=== PATIENT | male | born 1960 | race Caucasian/White ===

== ENCOUNTER 2019-01-11 06:32 | Day surgery (SDC) | payer BC ==
[~2019-01-11] VITALS: Ht 172.7 cm; Wt 104.6 kg
[2019-01-11 07:24] VITALS: BP 135/79
[2019-01-11] MEDS ORDERED: METF500T17 PO (07:36)
[2019-01-11] MEDS ORDERED: LEVO100T5 PO (07:36)
[2019-01-11] MEDS ORDERED: GLIM1TAB2 PO (07:36)
[2019-01-11] MEDS ORDERED: TRAV5DRO EACHEYE (07:36)
[2019-01-11] MEDS ORDERED: ATEN50TA41 PO (07:36)
[2019-01-11] MEDS ORDERED: LACTATED RINGERS 1,000 ML IV SCH (07:36)
[2019-01-11 07:48] LABS: ALBUMIN 3.8 g/dL (3.4-5.0); ANION GAP 8 mmol/L (5-15); CALCIUM 9.2 mg/dL (8.5-10.1); CHLORIDE 111 mmol/L (98-107)
[2019-01-11 07:51] LABS: ALANINE AMINOTRANSFERASE 25 U/L (12-78); ALKALINE PHOSPHATASE 115 U/L (45-117); BILIRUBIN,TOTAL 0.6 mg/dL (0.2-1.0); CREATININE 1.15 mg/dL (0.7-1.3); TOTAL PROTEIN 8.1 g/dL (6.4-8.2)
[2019-01-11] MEDS ORDERED: ONDANSETRON 2MG/ML, 2ML IV PRN (08:00)
[2019-01-11] MEDS ORDERED: ACETAMINOPHEN 325 MG TABLET PO PRN (08:00)
[2019-01-11] MEDS ORDERED: METOPROLOL 1 MG/ML, 5ML IV PRN (08:00)
[2019-01-11] MEDS ORDERED: KETOROLAC 30 MG/1 ML IV PRN (08:00)
[2019-01-11] MEDS ORDERED: PROPOFOL 10 MG/ML, 20ML ONE (08:21)
[2019-01-11] MEDS ORDERED: OXYcodone/APAP 5/325MG TABLET PO PRN (09:00)
[2019-01-11] MEDS ORDERED: KETOROLAC 30 MG/1 ML IVPush SCH (10:00)
== END 2019-01-11 10:10 | disposition home or self-care (01) ==
LOC: OUT 06:32
PROVIDERS: ATTEND Orthopaedic Surgery
DX: T84.84XA Pain due to internal orthopedic prosthetic devices, implants and grafts, initial encounter (principal); M21.371 Foot drop, right foot; I10 Essential (primary) hypertension; E11.9 Type 2 diabetes mellitus without complications; E03.9 Hypothyroidism, unspecified; L40.9 Psoriasis, unspecified; H40.9 Unspecified glaucoma; Z79.890 Hormone replacement therapy; Z79.84 Long term (current) use of oral hypoglycemic drugs; Z79.82 Long term (current) use of aspirin; Z79.899 Other long term (current) drug therapy; Z82.3 Family history of stroke; Y83.8 Other surgical procedures as the cause of abnormal reaction of the patient, or of later complication, without mention of misadventure at the time of the procedure
CPT/HCPCS: 20610; 73501; 77002; 80053; 82962; 93005; J2704; J7120; 76000

== ENCOUNTER → 2020-12-10 | Outpatient (CLI) | payer MEDICAID ==
[~2020-12-10] MED LIST: ATEN25TA PO; ATEN50TA41 PO; GLIM1TAB7 PO; LATA2.5D4 EACHEYE; LEVO100T5 PO; LEVO50TA5 PO; METF500T17 PO; METF850T10 PO; TRAV5DRO EACHEYE
[2020-12-10 10:09] LABS: BASOPHILS % (AUTO) 1 % (0-1); EOSINOPHILS % (AUTO) 4 % (1-7); LYMPHOCYTES % (AUTO) 13 % (22-44); MEAN CORPUSCULAR HEMOGLOBIN 31.3 pg (27.5-34.5); MEAN CORPUSCULAR HGB CONC 33.8 g/dL (33.2-36.2); MEAN PLATELET VOLUME 11.9 fL (7.4-10.4); MONOCYTES % (AUTO) 8 % (2-9); NEUTROPHILS % (AUTO) 76 % (42-75); PLATELET COUNT 141 x10^3/uL (130-400); RED BLOOD COUNT 4.88 x10^6/uL (4.38-5.82); RED CELL DISTRIBUTION WIDTH 15.1 % (9.4-14.8)
[2020-12-10 10:14] LABS: ALANINE AMINOTRANSFERASE 20 U/L (12-78); ANION GAP 3 mmol/L (5-15); CALCIUM 9.8 mg/dL (8.5-10.1); CHLORIDE 108 mmol/L (98-107); CREATININE 1.32 mg/dL (0.7-1.3)
[2020-12-10 10:15] LABS: INTERNATIONAL NORMALIZED RATIO 0.99 (0.93-1.1); PROTHROMBIN TIME 10.6 Seconds (9.6-11.5)
[2020-12-10 10:16] LABS: ALKALINE PHOSPHATASE 104 U/L (45-117); BILIRUBIN,TOTAL 0.5 mg/dL (0.2-1.0)
[2020-12-10 10:44] LABS: MD SCAN
== END | disposition home or self-care (01) ==
LOC: STAR 08:42
PROVIDERS: ATTEND Orthopaedic Surgery
DX: Z01.812 Encounter for preprocedural laboratory examination (principal); Z20.822 Contact with and (suspected) exposure to COVID-19; Z96.641 Presence of right artificial hip joint; Z79.01 Long term (current) use of anticoagulants; T84.51XD Infection and inflammatory reaction due to internal right hip prosthesis, subsequent encounter; T84.194A Other mechanical complication of internal fixation device of right femur, initial encounter
CPT/HCPCS: 36415; 80053; 83036; 85025; 85610; 85730; 87081; 93005; U0003

== ENCOUNTER 2020-12-16 13:09 | Inpatient (IN) | payer MEDICAID ==
[~2020-12-16] VITALS: Ht 172.7 cm; Wt 111.4 kg
[~2020-12-16 13:09] MED LIST changes: +EPINEPHRINE 1 MG/ML, 1ML ONE; +KETOROLAC 60 MG/2 ML ONE; +ROPIvacaine/PF 0.5%, 20 ML ONE; +ROPIvacaine/PF 0.5%, 30 ML ONE; +SODIUM CHLORIDE 0.9% 0 ML ONE; +TRANEXAMIC ACID 100 MG/ML, 10ML ONE; +VANCOMYCIN 1,000 MG ONE
[2020-12-16] MEDS ORDERED: CHLORHEXIDINE 15 ML UDC ONE (13:54)
[2020-12-16] MEDS ORDERED: ACETAMINOPHEN 500 MG TABLET PO ONE (14:00)
[2020-12-16] MEDS ORDERED: GABAPENTIN 300 MG CAPSULE PO ONE (14:00)
[2020-12-16] MEDS ORDERED: ONDANSETRON 4 MG TABLET PO PRN (14:00)
[2020-12-16] MEDS ORDERED: ZOLPIDEM 5MG TABLET PO PRN (14:00)
[2020-12-16] MEDS ORDERED: OXYcodone IR 5MG TABLET PO PRN (14:00)
[2020-12-16] MEDS ORDERED: ACETAMINOPHEN 650 MG/20.3 ML UDC PO PRN (14:00)
[2020-12-16] MEDS ORDERED: MAGNESIUM HYDROXIDE 8%, 30ML UDC PO PRN (14:00)
[2020-12-16] MEDS ORDERED: BISACODYL 10 MG SUPP PR PRN (14:00)
[2020-12-16] MEDS ORDERED: LACTATED RINGERS 1,000 ML IV SCH (14:00)
[2020-12-16] MEDS ORDERED: DIPHENHYDRAMINE 25 MG CAPSULE PO PRN (14:00)
[2020-12-16] MEDS ORDERED: HYDROcodone/APAP 5/325 TABLET PO PRN (14:00)
[2020-12-16] MEDS ORDERED: ONDANSETRON 2MG/ML, 2ML IV PRN (14:00)
[2020-12-16] MEDS ORDERED: VANCOMYCIN PER PHARMACY MC PRN (14:00)
[2020-12-16] MEDS ORDERED: SENNA/DOCUSATE TABLET PO PRN (14:00)
[2020-12-16] MEDS ORDERED: CHLORHEXIDINE 15 ML UDC PO ONE (14:00)
[2020-12-16] MEDS ORDERED: TOBRAMYCIN SULFATE 1.2 GM IMP ONE (14:13)
[2020-12-16] MEDS ORDERED: VANCOMYCIN 1,000 MG ONE ×3 (14:13→16:07)
[2020-12-16] MEDS ORDERED: VANCOMYCIN 1,900 MG in SODIUM CHLORIDE 0.9% 250 ML IV ONE (14:30)
[2020-12-16] MEDS ORDERED: ROPIvacaine/PF 0.5%, 20 ML ONE (15:15)
[2020-12-16] MEDS ORDERED: TRANEXAMIC ACID 100 MG/ML, 10ML ONE ×2 (15:15)
[2020-12-16] MEDS ORDERED: KETOROLAC 60 MG/2 ML ONE (15:15)
[2020-12-16] MEDS ORDERED: SODIUM CHLORIDE 0.9% 0 ML ONE (15:15)
[2020-12-16] MEDS ORDERED: ROPIvacaine/PF 0.5%, 30 ML ONE (15:15)
[2020-12-16] MEDS ORDERED: EPINEPHRINE 1 MG/ML, 1ML ONE (15:16)
[2020-12-16] MEDS ORDERED: FENTANYL PF 100 MCG/2ML ONE ×5 (16:11→18:08)
[2020-12-16] MEDS ORDERED: PROPOFOL 10 MG/ML, 20ML ONE (16:33)
[2020-12-16] MEDS ORDERED: CEFAZOLIN 1,000 MG ONE (16:33)
[2020-12-16] MEDS ORDERED: SUCCINYLCHOLINE 20 MG/ML, 10ML ONE (16:33)
[2020-12-16] MEDS ORDERED: ONDANSETRON 2MG/ML, 2ML ONE (16:33)
[2020-12-16] MEDS ORDERED: GLYCOPYRROLATE 0.2MG/1ML, 5ML ONE (16:33)
[2020-12-16] MEDS ORDERED: DEXAMETHASONE 4 MG/ML, 1ML ONE (16:33)
[2020-12-16] MEDS ORDERED: ROCURONIUM 10MG/ML,5ML ONE (16:33)
[2020-12-16] MEDS ORDERED: NEOSTIGMINE 1 MG/ML, 10ML ONE (16:33)
[2020-12-16] MEDS ORDERED: ONDANSETRON 2MG/ML, 2ML IVPush PRN (18:30)
[2020-12-16] MEDS ORDERED: OXYcodone 5 MG/5 ML ORAL.SOL UDC PO PRN (18:30)
[2020-12-16] MEDS ORDERED: PROMETHAZINE 25 MG/ML, 1ML IVPush PRN (18:30)
[2020-12-16] MEDS ORDERED: LORazepam 2 MG/ML, 1ML IVPush PRN (18:30)
[2020-12-16] MEDS ORDERED: hydrALAzine 20 MG/ML, 1ML IV PRN (18:30)
[2020-12-16] MEDS ORDERED: ACETAMINOPHEN 325 MG TABLET PO PRN (18:30)
[2020-12-16] MEDS ORDERED: EPHEDRINE 50 MG/ML, 1ML IVPush PRN (18:30)
[2020-12-16] MEDS ORDERED: METHOCARBAMOL 1,000 MG in DEXTROSE 5% 100 ML IV PRN (18:30)
[2020-12-16] MEDS ORDERED: MEPERIDINE/PF 25MG/0.5ML IVPush PRN (18:30)
[2020-12-16] MEDS ORDERED: LABETALOL 5MG/ML, 20ML IV PRN (18:30)
[2020-12-16] MEDS ORDERED: HYDROmorphone 1 MG/ML, 1ML INJ IVPush PRN (18:30)
[2020-12-16] MEDS ORDERED: FENTANYL PF 100 MCG/2ML IV PRN (18:30)
[2020-12-16 19:51] VITALS: BP 131/76
[2020-12-16] MEDS ORDERED: PHARMACOKINETIC MONITORING MC PRN (20:00)
[2020-12-16] MEDS: NS + 20MEQ KCL 1,000 ML IV SCH (21:19)
[2020-12-16] MEDS: metFORMIN 850 MG TABLET PO SCH (21:20)
[2020-12-16] MEDS: ASPIRIN 81 MG TABLET EC PO SCH (21:20)
[2020-12-16] MEDS: DOCUSATE 100 MG CAPSULE PO SCH (21:20)
[2020-12-16] MEDS: CEFAZOLIN PMX 2GM/50ML 50 ML IVPB SCH (21:20)
[2020-12-17 00:08] VITALS: BP 129/75
[2020-12-17] MEDS: LATANOPROST OPHTH 0.005%, 2.5ML EACHEYE SCH ×2 (01:04→21:29)
[2020-12-17] MEDS: CEFAZOLIN PMX 2GM/50ML 50 ML IVPB SCH (04:07)
[2020-12-17 04:22] VITALS: BP 108/56
[2020-12-17 05:29] LABS: CREATININE 1.22 mg/dL (0.7-1.3)
[2020-12-17] MEDS ORDERED: DEXAMETHASONE 4 MG/ML, 1ML IVPush SCH (06:00)
[2020-12-17] MEDS: ASPIRIN 81 MG TABLET EC PO SCH ×2 (06:08→17:27)
[2020-12-17] MEDS: LEVOTHYROXINE 50 MCG TABLET PO SCH (06:08)
[2020-12-17] MEDS: VANCOMYCIN 2,000 MG in SODIUM CHLORIDE 0.9% 500 ML IV SCH (06:08)
[2020-12-17 07:35] VITALS: BP 137/75
[2020-12-17 07:38] VITALS: BP 137/75
[2020-12-17] MEDS: NS + 20MEQ KCL 1,000 ML IV SCH ×2 (08:09→20:39)
[2020-12-17] MEDS: metFORMIN 850 MG TABLET PO SCH ×2 (08:28→17:27)
[2020-12-17] MEDS: DOCUSATE 100 MG CAPSULE PO SCH ×2 (08:28→21:30)
[2020-12-17] MEDS: ATENOLOL 25 MG TABLET PO SCH (08:29)
[2020-12-17 12:59] VITALS: BP 114/67
[2020-12-17 20:37] VITALS: BP 128/70
[2020-12-18] MEDS: VANCOMYCIN 2,000 MG in SODIUM CHLORIDE 0.9% 500 ML IV SCH ×2 (00:07→18:28)
[2020-12-18 00:37] VITALS: BP 129/74
[2020-12-18] MEDS: ASPIRIN 81 MG TABLET EC PO SCH ×2 (05:42→18:13)
[2020-12-18] MEDS: LEVOTHYROXINE 50 MCG TABLET PO SCH (05:42)
[2020-12-18 07:28] VITALS: BP 115/65
[2020-12-18] MEDS: NS + 20MEQ KCL 1,000 ML IV SCH ×2 (09:09→20:48)
[2020-12-18] MEDS: metFORMIN 850 MG TABLET PO SCH ×2 (09:50→18:13)
[2020-12-18] MEDS: DOCUSATE 100 MG CAPSULE PO SCH ×2 (09:50→20:48)
[2020-12-18] MEDS: ATENOLOL 25 MG TABLET PO SCH (09:50)
[2020-12-18] MEDS: ERTAPENEM 1 GM in SODIUM CHLORIDE 0.9% 50 ML IV SCH (12:28)
[2020-12-18 14:25] VITALS: BP 103/63
[2020-12-18 18:12] LABS: CREATININE 1.15 mg/dL (0.7-1.3); VANCOMYCIN,TROUGH 17.9 mcg/mL (5.0-10.0)
[2020-12-18 20:26] VITALS: BP 124/69
[2020-12-18] MEDS: LATANOPROST OPHTH 0.005%, 2.5ML EACHEYE SCH (20:48)
[2020-12-19 02:37] VITALS: BP 110/67
[2020-12-19] MEDS: ASPIRIN 81 MG TABLET EC PO SCH ×2 (05:33→17:08)
[2020-12-19] MEDS: LEVOTHYROXINE 50 MCG TABLET PO SCH (05:33)
[2020-12-19] MEDS: ATENOLOL 25 MG TABLET PO SCH (07:58)
[2020-12-19] MEDS: metFORMIN 850 MG TABLET PO SCH ×2 (07:58→17:08)
[2020-12-19] MEDS: DOCUSATE 100 MG CAPSULE PO SCH ×2 (07:58→21:34)
[2020-12-19 08:22] VITALS: BP 107/64
[2020-12-19] MEDS: ERTAPENEM 1 GM in SODIUM CHLORIDE 0.9% 50 ML IV SCH (10:05)
[2020-12-19] MEDS: NS + 20MEQ KCL 1,000 ML IV SCH ×2 (10:09→21:36)
[2020-12-19 12:09] VITALS: BP 112/69
[2020-12-19] MEDS: VANCOMYCIN 2,000 MG in SODIUM CHLORIDE 0.9% 500 ML IV SCH (12:18)
[2020-12-19 19:07] VITALS: BP 113/66
[2020-12-19] MEDS: LATANOPROST OPHTH 0.005%, 2.5ML EACHEYE SCH (21:34)
[2020-12-20 01:40] VITALS: BP 101/48
[2020-12-20] MEDS: ASPIRIN 81 MG TABLET EC PO SCH ×2 (05:49→17:12)
[2020-12-20] MEDS: LEVOTHYROXINE 50 MCG TABLET PO SCH (05:49)
[2020-12-20] MEDS: VANCOMYCIN 2,000 MG in SODIUM CHLORIDE 0.9% 500 ML IV SCH (05:49)
[2020-12-20 07:39] VITALS: BP 110/67
[2020-12-20] MEDS: ATENOLOL 25 MG TABLET PO SCH (08:56)
[2020-12-20] MEDS: metFORMIN 850 MG TABLET PO SCH ×2 (08:56→17:12)
[2020-12-20] MEDS: DOCUSATE 100 MG CAPSULE PO SCH ×2 (08:56→20:21)
[2020-12-20 08:59] VITALS: BP 112/67
[2020-12-20] MEDS: ERTAPENEM 1 GM in SODIUM CHLORIDE 0.9% 50 ML IV SCH (10:23)
[2020-12-20] MEDS: NS + 20MEQ KCL 1,000 ML IV SCH ×2 (11:21→20:21)
[2020-12-20 13:55] VITALS: BP 101/62
[2020-12-20 19:42] VITALS: BP 121/67
[2020-12-20] MEDS: LATANOPROST OPHTH 0.005%, 2.5ML EACHEYE SCH (20:21)
[2020-12-21] MEDS: VANCOMYCIN 2,000 MG in SODIUM CHLORIDE 0.9% 500 ML IV SCH (00:10)
[2020-12-21 00:19] VITALS: BP 132/77
[2020-12-21 05:40] LABS: BASOPHILS % (AUTO) 1 % (0-1); EOSINOPHILS % (AUTO) 8 % (1-7); LYMPHOCYTES % (AUTO) 16 % (22-44); MEAN CORPUSCULAR HEMOGLOBIN 31.2 pg (27.5-34.5); MEAN CORPUSCULAR HGB CONC 33.7 g/dL (33.2-36.2); MEAN PLATELET VOLUME 12.3 fL (7.4-10.4); MONOCYTES % (AUTO) 8 % (2-9); NEUTROPHILS % (AUTO) 67 % (42-75); PLATELET COUNT 158 x10^3/uL (130-400); RED BLOOD COUNT 3.55 x10^6/uL (4.38-5.82); RED CELL DISTRIBUTION WIDTH 14.7 % (9.4-14.8)
[2020-12-21 05:46] LABS: ALBUMIN 2.8 g/dL (3.4-5.0); ANION GAP 7 mmol/L (5-15); CALCIUM 8.8 mg/dL (8.5-10.1); CHLORIDE 108 mmol/L (98-107)
[2020-12-21 05:55] LABS: ALANINE AMINOTRANSFERASE 15 U/L (12-78); ALKALINE PHOSPHATASE 70 U/L (45-117); BILIRUBIN,TOTAL 0.4 mg/dL (0.2-1.0); CREATININE 0.92 mg/dL (0.7-1.3); TOTAL PROTEIN 7.1 g/dL (6.4-8.2)
[2020-12-21] MEDS: ASPIRIN 81 MG TABLET EC PO SCH (05:56)
[2020-12-21] MEDS: LEVOTHYROXINE 50 MCG TABLET PO SCH (05:56)
[2020-12-21 07:25] VITALS: BP 116/75
[2020-12-21] MEDS ORDERED: ASPI-963 PO (08:35)
[2020-12-21] MEDS ORDERED: TRAM50TA2 PO (08:36)
[2020-12-21] MEDS ORDERED: OXYC5CAP2 PO (08:36)
[2020-12-21] MEDS ORDERED: MELO7.5T31 PO (08:37)
[2020-12-21] MEDS: DOCUSATE 100 MG CAPSULE PO SCH (08:51)
[2020-12-21] MEDS: ATENOLOL 25 MG TABLET PO SCH (08:51)
[2020-12-21] MEDS: metFORMIN 850 MG TABLET PO SCH (08:51)
[2020-12-21 10:18] LABS: HCT (SEDRATE) 33.6 % (39.2-51.8)
[2020-12-21] MEDS: ERTAPENEM 1 GM in SODIUM CHLORIDE 0.9% 50 ML IV SCH (11:13)
[2020-12-21] MEDS: NS + 20MEQ KCL 1,000 ML IV SCH (12:09)
[2020-12-21 14:35] VITALS: BP 140/82
== END 2020-12-21 16:08 | disposition home or self-care (01) | DRG 468 ==
LOC: OUT 13:09 → OBSVTOIN 13:56 → ORIP 13:56 → 4NE 19:30 → DCLOUNGE 12-21 15:57
PROVIDERS: ADMIT Orthopaedic Surgery; ATTEND Orthopaedic Surgery
PROC: 0SP909Z Removal of Liner from Right Hip Joint, Open Approach (ICD-10-PCS; 2020-12-16)
PROC: 0SUA09Z Supplement Right Hip Joint, Acetabular Surface with Liner, Open Approach (ICD-10-PCS; 2020-12-16)
PROC: 0SR90EZ Replacement of Right Hip Joint with Articulating Spacer, Open Approach (ICD-10-PCS; principal; 2020-12-16 16:00)
PROC: 02HV33Z Insertion of Infusion Device into Superior Vena Cava, Percutaneous Approach (ICD-10-PCS; 2020-12-21)
PROC: B548ZZA Ultrasonography of Superior Vena Cava, Guidance (ICD-10-PCS; 2020-12-21)
DX: T84.51XA Infection and inflammatory reaction due to internal right hip prosthesis, initial encounter (principal); E03.9 Hypothyroidism, unspecified; E11.9 Type 2 diabetes mellitus without complications; I10 Essential (primary) hypertension; Y83.1 Surgical operation with implant of artificial internal device as the cause of abnormal reaction of the patient, or of later complication, without mention of misadventure at the time of the procedure; Z96.641 Presence of right artificial hip joint
CPT/HCPCS: 36415; 72170; J3260; 36573; 80053; 80202; 82565; 82962; 84520; 85014; 85018; 85025; 85651; 86140; 86850; 86900; 87070; 87075; 87077; 87186; 87205; C1713; G0378; J0171; J0690; J1100; J1335; J1885; J2405; J2704; J2710; J2795; J3010; J3370; J3480; C1751; C1776; J0330; J7040; J7050; J7120